=== PATIENT | female | born 1965 | race Caucasian/White ===

== ENCOUNTER 2020-03-24 08:44 | Emergency (ER) | payer BC, SELFPAY ==
[~2020-03-24] VITALS: Ht 160 cm; Wt 70.3 kg
[2020-03-24 08:47] VITALS: BP 128/77; Ht 160 cm; Wt 70.3 kg
== END 2020-03-24 09:45 | disposition home or self-care (01) ==
LOC: ED 08:44
DX: U07.1 COVID-19 (principal)
CPT/HCPCS: U0003

== ENCOUNTER 2020-03-29 16:05 | Emergency (ER) | payer BC, SELFPAY ==
[~2020-03-29] VITALS: Ht 160 cm; Wt 61.2 kg
[2020-03-29 16:07] VITALS: Ht 160 cm; Wt 61.2 kg
[2020-03-29 17:11] VITALS: BP 100/58
== END 2020-03-29 17:11 | disposition home or self-care (01) ==
LOC: ED 16:05
DX: U07.1 COVID-19 (principal)
CPT/HCPCS: U0003